=== PATIENT | female | born 1975 | race Caucasian/White ===

== ENCOUNTER 2016-11-02 15:04 | Emergency (ER) | payer MEDICAID, OTHER ==
[~2016-11-02] VITALS: Ht 160 cm; Wt 116.0 kg
[2016-11-02 15:06] VITALS: Ht 160 cm; Wt 116.0 kg
[2016-11-02] MEDS ORDERED: KETOROLAC 30 MG INJ IV STA (15:56)
[2016-11-02 16:20] LABS: ADD SCAN DIFF NO
[2016-11-02 16:21] LABS: BASOPHIL # 0.1 10^3/ul (0.0-0.1); BASOPHILS % 0.4 % (0.0-2.0); EOSINOPHILS # 0.9 10^3/ul (0.0-0.5); EOSINOPHILS % 6.3 % (0.0-7.0); HEMATOCRIT 38.7 % (37.0-47.0); HEMOGLOBIN 12.7 g/dl (12.0-16.0); LYMPHOCYTES # 3.7 10^3/ul (0.8-2.9); LYMPHOCYTES % 27.4 % (15.0-51.0); MEAN CORPUSCULAR HEMOGLOBIN 29.7 pg (29.0-33.0); MEAN CORPUSCULAR HGB CONC 32.8 g/dl (32.0-37.0); MEAN CORPUSCULAR VOLUME 90.4 fl (82.0-101.0); MEAN PLATELET VOLUME 9.7 fl (7.4-10.4); NEUTROPHILS % 58.7 % (39.0-77.0); PLATELET COUNT 282 10^3/UL (140-415); RED BLOOD COUNT 4.28 10^6/ul (4.20-5.40); RED CELL DISTRIBUTION WIDTH 13.2 % (11.5-14.5); WHITE BLOOD COUNT 13.6 10^3/ul (4.8-10.8)
--- NOTE | 2016-11-02 16:35 | RADRPT ---
PROCEDURE: XR Chest. CLINICAL INDICATION: Chest pain. TECHNIQUE: Portable AP view of the chest was obtained. COMPARISON: None. FINDINGS: The cardiomediastinal silhouette is within upper normal limits. The lungs are clear. There is no e vidence for pleural effusion, pneumothorax or pulmonary vascular congestion. The osseous structures are intact with no evidence for acute abnormality. RPTAT:HJJR IMPRESSION: No evidence for acute intrathoracic pathology. Physician Larissa Date Time Electronically viewed and signed by Physician Larissa on 11/02/2016 16:34 JR/
[2016-11-02 16:36] LABS: INR 0.88; PROTIME 11.9 Sec (12.2-14.2); PT RATIO 0.9
[2016-11-02 16:43] LABS: CHLORIDE 103 mmol/L (97-110); POTASSIUM 3.4 mmol/L (3.5-5.1); SODIUM 140 mmol/L (135-144)
[2016-11-02 16:45] LABS: CREATININE 0.57 mg/dl (0.44-1.00)
[2016-11-02 16:46] LABS: ANION GAP 13 (8-16); BLOOD UREA NITROGEN 9 mg/dl (7-20); CALCIUM 8.9 mg/dl (8.4-10.2); CARBON DIOXIDE 27 mmol/L (21-31); GLUCOSE 86 mg/dl (70-220)
[2016-11-02 16:51] VITALS: BP 124/81; PULSE 92; RESP 18
[2016-11-02 17:05] LABS: TROPONIN-I < 0.012 ng/ml (0.00-0.12)
[2016-11-02] MEDS ORDERED: NAPR-260 PO (17:23)
--- NOTE | 2016-11-02 17:23 | ERD ---
ER Documentation Chief Complaint Date/Time DATE: 11/02/16 TIME: 17:20 Chief Complaint chest pain radiating to left arm with nausea since last night HPI This is a 41-year-old female who presents to the emergency room for evaluation of left arm pain and chest pain that she has had for 24 hours duration. She states it is constant pain and worse with movement of her left arm. She states that the pain is located on the left side of the chest to left arm it does get worse and radiates slightly to the left shoulder. She denies having any history of hypertension, diabetes, high cholesterol or any family history of heart conditions. She denies any shortness of breath or palpitations and came to the ER for evaluation of her symptoms ROS All systems reviewed and are negative except as per history of present illness. Medications Home Meds No Active Prescriptions or Reported Meds Allergies Allergies: Coded Allergies: No Known Allergy (Unverified , 11/02/16) PMhx/Soc Medical and Surgical Hx: pt denies Medical Hx, pt denies Surgical Hx Hx Alcohol Use: No Hx Substance Use: No Hx Tobacco Use: No Smoking Status: Never smoker Physical Exam Vitals Vital Signs Date Time Temp Pulse Resp B/P Pulse Ox O2 Delivery O2 Flow Rate FiO2 11/02/16 16:51 92 18 124/81 98 11/02/16 16:18 66 18 119/70 98 11/02/16 15:06 98.0 100 18 188/98 98 Physical Exam INITIAL VITAL SIGNS: Reviewed by me GENERAL: The patient is well developed and appropriate for usual state of health in no apparent distress HEENT: Pupils equal, round, and reactive to light. EOMI. There is no scleral icterus. NECK: C-spine is soft and supple, there is no meningismus. There is no cervical lymphadenopathy. LUNGS: Clear to auscultation bilaterally. There are no rales, wheezes or rhonchi. HEART: Regular rate and rhythm, no murmurs, clicks, rubs or gallops. ABDOMEN: Soft, non-tender, non-distended. There are bowel sounds in all four quadrants. No rebound or guarding. EXTREMITIES: Tenderness with passive range of motion in abduction and external rotation of the left shoulder. There is no peripheral cyanosis or edema. No focal swelling or erythema. NEUROLOGICAL: The patient moves all four extremities with 5/5 strength. Cranial nerves II - XII are intact. Normal gait. Alert and oriented SKIN: There is no apparent rash or petechiae. HEME/LYMPHATIC: There is no evidence of excessive bruising or lymphedema. PSYCHIATRIC: The patient does not appear anxious or depressed. Result Diagram: 11/02/16 1615 11/02/16 1615 Results 24 hrs Laboratory Tests Test 11/02/16 16:15 White Blood Count 13.610^3/ul Red Blood Count 4.2810^6/ul Hemoglobin 12.7g/dl Hematocrit 38.7% Mean Corpuscular Volume 90.4fl Mean Corpuscular Hemoglobin 29.7pg Mean Corpuscular Hemoglobin Concent 32.8g/dl Red Cell Distribution Width 13.2% Platelet Count 04215^3/UL Mean Platelet Volume 9.7fl Neutrophils % 58.7% Lymphocytes % 27.4% Monocytes % 7.0% Eosinophils % 6.3% Basophils % 0.4% Nucleated Red Blood Cells % 0.0/100WBC Neutrophils # 8.010^3/ul Lymphocytes # 3.710^3/ul Monocytes # 1.010^3/ul Eosinophils # 0.910^3/ul Basophils # 0.110^3/ul Nucleated Red Blood Cells # 0.010^3/ul Prothrombin Time 11.9Sec Prothrombin Time Ratio 0.9 INR International Normalized Ratio 0.88 Activated Partial Thromboplast Time 23.0Sec Sodium Level 140mmol/L Potassium Level 3.4mmol/L Chloride Level 103mmol/L Carbon Dioxide Level 27mmol/L Anion Gap 13 Blood Urea Nitrogen 9mg/dl Creatinine 0.57mg/dl Glucose Level 86mg/dl Calcium Level 8.9mg/dl Troponin I < 0.012ng/ml Current Medications Medications (Trade) Dose Ordered Sig/[place] Route PRN Reason Start Time Stop Time Status Last Admin Dose Admin Ketorolac Tromethamine (Toradol) 30 mg ONCE STAT IV 11/02/16 15:56 11/02/16 15:57 DC 11/02/16 16:08 Procedures/MDM Chest X-ray 1V Interpreted by me: Soft Tissue: No acute abnormalities Bones: No acute abnormalities Mediastinum/Cardiac Silhouette/Lungs: [No acute abnormalities] EKG: Rate/Rhythm: [Normal Sinus Rhythm] QRS, ST, T-waves: [No changes consistent w/ acute ischemia] Impression: [No evidence of ischemia or arrhythmia] This 41-year-old female presents to the emergency room for evaluation of left- sided shoulder pain and chest pain. When I evaluated this patient I did note that she was tender to palpation, her pain was worse with movement of the left shoulder. This patient has a heart score of 0. Her EKG is nonischemic. Chest x-ray is also clear. This patient did have lab work drawn including a troponin which is also negative. I do feel this patient's symptoms are muscular in nature. She was given Toradol in the emergency room, and upon my reevaluation the patient states that she is feeling slightly better. She will be discharged home at this time with a prescription for Motrin and instructions to avoid heavy lifting with the left arm. Departure Diagnosis: Primary Impression: Chest pain Additional Impression: Left shoulder pain Condition: Stable JANAY PURI DO November 02, 2016 17:23
== END 2016-11-02 17:43 | disposition home or self-care (01) ==
LOC: E/R 15:04
DX: R07.9 Chest pain, unspecified (principal); M25.512 Pain in left shoulder
CPT/HCPCS: 36415; 71010; 80048; 84484; 85025; 85610; 85730; 93005; 96374; J1885; Z7502